=== PATIENT | male | born 1955 | race Caucasian/White ===

== ENCOUNTER 2024-02-02 13:06 | Inpatient (IN) | payer MEDICARE, MEDICAID ==
[~2024-02-02] VITALS: Ht 177.8 cm; Wt 92.6 kg
[2024-02-02] MEDS: CEFTRIAXONE 1GM/50ML 50 ML IV ONE (13:54)
[2024-02-02 14:01] LABS: EOSINOPHILS % 6.3 % (0.0-5.0); HEMATOCRIT. 40.3 % (42.0-52.0); HEMOGLOBIN. 13.4 g/dL (14.0-18.0); LYMPHOCYTES % 29.3 % (20.0-50.0); MEAN CORPUSCULAR HEMOGLOBIN 31.9 pg (28.0-32.0); MEAN CORPUSCULAR HGB CONC 33.2 g/dL (31.0-37.0); MEAN PLATELET VOLUME 8.4 fl (7.4-10.4); MONOCYTES % 12.2 % (2.0-8.0); NEUTROPHILS % 51.2 % (40.0-76.0); PLATELET 185 x1000/uL (130-400); RED CELL DISTRIBUTION WIDTH 14.2 % (11.6-14.6)
[2024-02-02 14:11] LABS: CARBON DIOXIDE 26 mEq/L (21-32); CHLORIDE 93 mEq/L (98-107); POTASSIUM 4.3 mEq/L (3.5-5.1); SODIUM 128 mEq/L (136-145)
[2024-02-02 14:12] LABS: CALCIUM 9.5 mg/dL (8.7-10.4)
[2024-02-02 14:16] LABS: GLUCOSE 204 mg/dL (70-105)
[2024-02-02 14:17] LABS: AMMONIA 33 uMol/L (<32); UREA NITROGEN BLOOD 35 mg/dL (9-23)
[2024-02-02 14:18] LABS: ALANINE AMINOTRANSFERASE 80 IU/L (10-49); ALBUMIN 4.4 g/dL (3.2-4.8); ASPARTATE AMINOTRANSFERASE 51 IU/L (<34)
[2024-02-02 14:19] LABS: BILIRUBIN DIRECT 0.1 mg/dL (<=3.0); BILIRUBIN TOTAL 0.4 mg/dL (0.1-1.0); PROTEIN TOTAL 7.3 g/dL (6.0-8.3)
[2024-02-02 14:22] LABS: CREATININE 11.9 mg/dL (0.6-1.3); TROPONIN I HIGH SENSITIVITY 69 ng/L (3.0-53)
[2024-02-02 14:38] LABS: INR 0.9; PARTIAL THROMBOPLASTIN TIME 24.2 sec (23.4-31.0); PROTHROMBIN TIME 10.4 sec (9.6-11.0)
[2024-02-02] MEDS: METRONIDAZOLE 500 MG PREMIX 100 ML IV ONE (15:31)
[2024-02-02] MEDS: LEVOFLOXACIN 500MG PREMIX 100 ML IV ONE (16:07)
[2024-02-02 17:14] LABS: BODY FLUID RBC 0 /cu mm (0-2000); BODY FLUID WBC 2 /cu mm (0-200)
[2024-02-02] MEDS ORDERED: ONDANSETRON HCL 4MG/2ML INJ IV PRN (17:30)
[2024-02-02] MEDS ORDERED: GUAIFENESIN 200MG/10ML SUGAR FREE UDC PO PRN (17:30)
[2024-02-02] MEDS ORDERED: DEXTROSE 50% WATER 50ML SYRINGE IV PRN (17:30)
[2024-02-02] MEDS ORDERED: IPRATROPIUM/ALBUTEROL 0.5-3(2.5)MG/3ML NEB HHN PRN (17:30)
[2024-02-02] MEDS ORDERED: ACETAMINOPHEN 325MG TABLET PO PRN ×2 (17:30)
[2024-02-02 17:35] VITALS: BP 125/78; PULSE 58; RESP 12; TEMP 36.6696; TEMP 36.696; O2SAT 97
[2024-02-02] MEDS: SODIUM CHLORIDE 0.9% 1,000 ML IV SCH (17:45)
[2024-02-02] MEDS ORDERED: PIPERACILLIN/TAZO 3.375G/50ML 50 ML IV SCH (18:00)
[2024-02-02 18:09] LABS: PHOSPHORUS 4.5 mg/dL (2.5-4.9)
[2024-02-02] MEDS: INSULIN LISPRO 100 UNITS/ML SUBCUT SCH (18:46)
[2024-02-02 20:00] VITALS: BP 154/87; PULSE 56; RESP 12; TEMP 36.6696; O2SAT 96
[2024-02-02 20:17] LABS: FOLIC ACID (FOLATE) SERUM > 20.00 ng/mL (>5.38)
[2024-02-02] MEDS: CEFEPIME 1GM/50ML 50 ML IV SCH (20:25)
[2024-02-02 20:46] LABS: VITAMIN B12 SERUM 1784 pg/mL (211-911)
[2024-02-02] MEDS: VANCOMYCIN 1,750 MG in DEXT 5% WATER 500 ML IV NR (21:23)
[2024-02-02] MEDS: BLOOD SUGAR DIAGNOSTIC STRIP TEST SCH (21:46)
[2024-02-02] MEDS: CARVEDILOL 3.125 MG TABLET PO SCH (22:47)
[2024-02-03] VITALS (11 sets, daily range): BP systolic 120–176; BP diastolic 70–100; PULSE 47–58; RESP 11–21; TEMP 36.44736–37.05852; O2SAT 96–99
[2024-02-03] MEDS: METRONIDAZOLE 500 MG PREMIX 100 ML IV SCH (00:36)
[2024-02-03] MEDS: CLONIDINE 0.1MG TABLET PO PRN (00:42)
[2024-02-03] MEDS: PANTOPRAZOLE 40MG DR TABLET PO SCH (06:06)
[2024-02-03 06:33] LABS: AMMONIA 19 uMol/L (<32)
[2024-02-03 06:36] LABS: T4 FREE 1.2 ng/dL (0.89-1.76)
[2024-02-03 06:37] LABS: THYROID STIMULATING HORMONE 1.94 uIU/mL (0.55-4.78)
[2024-02-03 06:40] LABS: BASOPHILS % 0.9 % (0.0-2.0); EOSINOPHILS % 5.2 % (0.0-5.0); HEMATOCRIT. 35.1 % (42.0-52.0); HEMOGLOBIN. 11.8 g/dL (14.0-18.0); LYMPHOCYTES % 19.8 % (20.0-50.0); MEAN CORPUSCULAR HEMOGLOBIN 31.8 pg (28.0-32.0); MEAN CORPUSCULAR HGB CONC 33.6 g/dL (31.0-37.0); MEAN CORPUSCULAR VOLUME 94.6 fL (80.0-94.0); MEAN PLATELET VOLUME 8.5 fl (7.4-10.4); MONOCYTES % 12.5 % (2.0-8.0); NEUTROPHILS % 61.6 % (40.0-76.0); PLATELET 194 x1000/uL (130-400); RED BLOOD CELL COUNT 3.71 mill/uL (4.7-6.1); RED CELL DISTRIBUTION WIDTH 13.9 % (11.6-14.6); WHITE BLOOD COUNT 6.4 x1000/uL (4.5-11.0)
[2024-02-03] MEDS: ASPIRIN 81MG TABLET PO SCH (09:13)
[2024-02-03] MEDS: ENOXAPARIN 30MG/0.3ML SYR SUBCUT SCH (09:14)
[2024-02-03] MEDS ORDERED: SEVE800T8 ×2 (14:52)
[2024-02-03] MEDS ORDERED: ATOR40TA70 PO (14:52)
[2024-02-03] MEDS ORDERED: NIFE-72 PO (14:52)
[2024-02-03] MEDS ORDERED: NIFEDIPINE PO SCH (15:00)
[2024-02-03 16:33] LABS: CREATINE KINASE MB FRACTION 6.1 ng/mL (0.5-3.6)
[2024-02-03] MEDS: SEVELAMER CARBONATE 800 MG TABLET PO SCH (18:10)
[2024-02-03] MEDS: ATORVASTATIN CALCIUM 40MG TABLET PO SCH (21:52)
[2024-02-04] VITALS (8 sets, daily range): BP systolic 109–123; BP diastolic 67–77; PULSE 56–66; RESP 10–21; TEMP 36.3918–36.9474; O2SAT 97–99
[2024-02-04 00:40] LABS: CREATINE KINASE MB FRACTION 6.3 ng/mL (0.5-3.6)
[2024-02-04 06:34] LABS: HEMOGLOBIN 11.6 g/dL (14.0-18.0); MEAN CORPUSCULAR HEMOGLOBIN 31.6 pg (28.0-32.0); MEAN CORPUSCULAR HGB CONC 33.1 g/dL (31.0-37.0); MEAN CORPUSCULAR VOLUME 95.4 fL (80.0-94.0); PLATELET 197 x1000/uL (130-400); RED BLOOD CELL COUNT 3.67 mill/uL (4.7-6.1); RED CELL DISTRIBUTION WIDTH 14.6 % (11.6-14.6); WHITE BLOOD COUNT 5.7 x1000/uL (4.5-11.0)
[2024-02-04 06:44] LABS: CHLORIDE 96 mEq/L (98-107); SODIUM 130 mEq/L (136-145)
[2024-02-04 06:45] LABS: CALCIUM 8.9 mg/dL (8.7-10.4); CARBON DIOXIDE 24 mEq/L (21-32)
[2024-02-04 06:49] LABS: CREATINE KINASE MB FRACTION 6.1 ng/mL (0.5-3.6)
[2024-02-04 06:50] LABS: GLUCOSE 209 mg/dL (70-105); UREA NITROGEN BLOOD 32 mg/dL (9-23)
[2024-02-04 06:52] LABS: ALANINE AMINOTRANSFERASE 38 IU/L (10-49); ALBUMIN 3.5 g/dL (3.2-4.8); ASPARTATE AMINOTRANSFERASE 20 IU/L (<34); BILIRUBIN DIRECT 0.1 mg/dL (<=3.0); BILIRUBIN TOTAL 0.3 mg/dL (0.1-1.0); CREATINE KINASE 89 IU/L (46-171)
[2024-02-04 07:02] LABS: CREATININE 11.9 mg/dL (0.6-1.3); POTASSIUM 2.6 mEq/L (3.5-5.1)
[2024-02-04 07:03] LABS: TROPONIN I HIGH SENSITIVITY 65 ng/L (3.0-53)
[2024-02-04 07:06] LABS: HEPATITIS B SURFACE ANTIGEN NEGATIVE (Negative)
[2024-02-04 07:27] LABS: HEPATITIS A AB IGM NEGATIVE (Negative); HEPATITIS B CORE AB IGM NEGATIVE (Negative)
[2024-02-04 07:28] LABS: HEPATITIS C AB NON REACTIVE (Neg) (Negative)
[2024-02-04] MEDS: NIFEDIPINE XL 60MG TAB PO SCH (08:25)
[2024-02-04] MEDS ORDERED: POTASSIUM CHLORIDE 40 MEQ in DEXT 5% WATER 230 ML IV ONE (10:00)
[2024-02-04] MEDS: KCL 20MEQ/100ML X 2 FOR TOTAL KCL 40MEQ/200ML IV SCH ×2 (11:08→16:15)
[2024-02-05] VITALS (7 sets, daily range): BP systolic 105–162; BP diastolic 59–96; PULSE 52–70; RESP 12–18; TEMP 36.3918–37.11408; O2SAT 95–100
[2024-02-05 07:02] LABS: BASOPHILS % 1.1 % (0.0-2.0); HEMOGLOBIN. 12.3 g/dL (14.0-18.0); LYMPHOCYTES % 20.2 % (20.0-50.0); MEAN CORPUSCULAR HEMOGLOBIN 31.8 pg (28.0-32.0); MEAN CORPUSCULAR HGB CONC 33.3 g/dL (31.0-37.0); MEAN CORPUSCULAR VOLUME 95.3 fL (80.0-94.0); MEAN PLATELET VOLUME 8.9 fl (7.4-10.4); MONOCYTES % 12.8 % (2.0-8.0); NEUTROPHILS % 61.9 % (40.0-76.0); PLATELET 198 x1000/uL (130-400); RED BLOOD CELL COUNT 3.88 mill/uL (4.7-6.1); RED CELL DISTRIBUTION WIDTH 14.4 % (11.6-14.6); WHITE BLOOD COUNT 6.2 x1000/uL (4.5-11.0)
[2024-02-05 08:01] LABS: POTASSIUM 2.8 mEq/L (3.5-5.1)
[2024-02-05 08:02] LABS: CREATININE 12.1 mg/dL (0.6-1.3)
[2024-02-05] MEDS ORDERED: POTASSIUM CHLORIDE 40 MEQ in DEXT 5% WATER 230 ML IV ONE (08:45)
[2024-02-05] MEDS ORDERED: KCL 20MEQ/100ML X 2 FOR TOTAL KCL 40MEQ/200ML IV SCH (09:00)
[2024-02-05] MEDS: KCL 20MEQ/100ML X 2 FOR TOTAL KCL 40MEQ/200ML IV SCH (10:57)
[2024-02-06] VITALS (11 sets, daily range): BP systolic 111–157; BP diastolic 65–97; PULSE 61–81; RESP 13–17; TEMP 36.3918–36.78072; O2SAT 96–99
[2024-02-06] MEDS: METRONIDAZOLE 500MG TABLET PO SCH (06:46)
[2024-02-06 07:15] LABS: POTASSIUM 3.3 mEq/L (3.5-5.1)
[2024-02-06 07:34] LABS: CREATININE 11.6 mg/dL (0.6-1.3)
[2024-02-06 07:53] LABS: EOSINOPHILS % 4.1 % (0.0-5.0); HEMATOCRIT. 35.8 % (42.0-52.0); HEMOGLOBIN. 11.8 g/dL (14.0-18.0); LYMPHOCYTES % 21.5 % (20.0-50.0); MEAN CORPUSCULAR HEMOGLOBIN 31.8 pg (28.0-32.0); MEAN CORPUSCULAR HGB CONC 32.8 g/dL (31.0-37.0); MEAN PLATELET VOLUME 8.4 fl (7.4-10.4); MONOCYTES % 14.9 % (2.0-8.0); NEUTROPHILS % 58.5 % (40.0-76.0); PLATELET 188 x1000/uL (130-400); RED BLOOD CELL COUNT 3.69 mill/uL (4.7-6.1); RED CELL DISTRIBUTION WIDTH 14.5 % (11.6-14.6); WHITE BLOOD COUNT 6.3 x1000/uL (4.5-11.0)
[2024-02-06] MEDS ORDERED: POTASSIUM CHLORIDE 40 MEQ in DEXT 5% WATER 230 ML IV ONE (13:00)
[2024-02-06] MEDS: KCL 20MEQ/100ML X 2 FOR TOTAL KCL 40MEQ/200ML IV SCH (13:58)
[2024-02-06] MEDS: LACTULOSE 20G/30ML UDC PO NR (15:23)
[2024-02-06 17:43] LABS: AMMONIA < 17 uMol/L (<32)
[2024-02-07] VITALS (8 sets, daily range): BP systolic 115–154; BP diastolic 45–137; PULSE 71–98; RESP 16–22; TEMP 36.114–37.11408; O2SAT 96–100
[2024-02-07 06:37] LABS: BASOPHILS % 0.9 % (0.0-2.0); EOSINOPHILS % 2.6 % (0.0-5.0); HEMATOCRIT. 37.9 % (42.0-52.0); HEMOGLOBIN. 12.7 g/dL (14.0-18.0); LYMPHOCYTES % 17.1 % (20.0-50.0); MEAN CORPUSCULAR HGB CONC 33.6 g/dL (31.0-37.0); MEAN CORPUSCULAR VOLUME 95.1 fL (80.0-94.0); MEAN PLATELET VOLUME 8.2 fl (7.4-10.4); MONOCYTES % 13.6 % (2.0-8.0); NEUTROPHILS % 65.8 % (40.0-76.0); PLATELET 205 x1000/uL (130-400); RED BLOOD CELL COUNT 3.98 mill/uL (4.7-6.1); RED CELL DISTRIBUTION WIDTH 14.4 % (11.6-14.6); WHITE BLOOD COUNT 6.5 x1000/uL (4.5-11.0)
[2024-02-07 06:59] LABS: POTASSIUM 3.2 mEq/L (3.5-5.1)
[2024-02-07 07:00] LABS: CALCIUM 9.2 mg/dL (8.7-10.4)
[2024-02-07 07:33] LABS: CREATININE 12.4 mg/dL (0.6-1.3)
[2024-02-07] MEDS: FAMOTIDINE 20MG TABLET PO SCH (08:03)
[2024-02-07] MEDS ORDERED: SODIUM CHLORIDE 0.9% 1,000 ML IV SCH (12:00)
[2024-02-07 13:05] LABS: INR 1.1; PROTHROMBIN TIME 12.1 sec (9.6-11.0)
[2024-02-07 13:16] LABS: AMMONIA < 17 uMol/L (<32)
[2024-02-07] MEDS: PANTOPRAZOLE SODIUM 40 MG/VIAL IV SCH (13:25)
[2024-02-07] MEDS: DEXT 5%/0.9% NACL 1,000 ML IV SCH (13:26)
[2024-02-07] MEDS: LORAZEPAM 2MG/ML INJ IV PRN (13:44)
[2024-02-07] MEDS: OCTREOTIDE 1,000 MCG in SODIUM CHLORIDE 0.9% 98 ML IV SCH (15:00)
[2024-02-08] VITALS (16 sets, daily range): BP systolic 121–155; BP diastolic 61–90; PULSE 67–78; RESP 12–21; TEMP 36.44736–36.78072; O2SAT 94–100
[2024-02-08] MEDS: METRONIDAZOLE 500 MG PREMIX 100 ML IV SCH (03:09)
[2024-02-08 03:43] LABS: HEMATOCRIT. 35.5 % (42.0-52.0); MEAN CORPUSCULAR HEMOGLOBIN 32.4 pg (28.0-32.0); MEAN CORPUSCULAR HGB CONC 33.7 g/dL (31.0-37.0); MEAN CORPUSCULAR VOLUME 96.1 fL (80.0-94.0); MEAN PLATELET VOLUME 7.9 fl (7.4-10.4); PLATELET 200 x1000/uL (130-400); RED BLOOD CELL COUNT 3.69 mill/uL (4.7-6.1); RED CELL DISTRIBUTION WIDTH 14.5 % (11.6-14.6); WHITE BLOOD COUNT 7.5 x1000/uL (4.5-11.0)
[2024-02-08 03:46] LABS: DIFFERENTIAL COMMENT 1
[2024-02-08 03:51] LABS: CHLORIDE 99 mEq/L (98-107); POTASSIUM 3.4 mEq/L (3.5-5.1); SODIUM 135 mEq/L (136-145)
[2024-02-08 03:52] LABS: CALCIUM 8.8 mg/dL (8.7-10.4); CARBON DIOXIDE 26 mEq/L (21-32)
[2024-02-08 03:53] LABS: INR 1.1; PROTHROMBIN TIME 12.1 sec (9.6-11.0)
[2024-02-08 03:57] LABS: GLUCOSE 144 mg/dL (70-105); UREA NITROGEN BLOOD 33 mg/dL (9-23)
[2024-02-08 03:59] LABS: ALANINE AMINOTRANSFERASE 61 IU/L (10-49); ALBUMIN 3.5 g/dL (3.2-4.8); ASPARTATE AMINOTRANSFERASE 69 IU/L (<34); BILIRUBIN TOTAL 0.4 mg/dL (0.1-1.0); PROTEIN TOTAL 6.1 g/dL (6.0-8.3)
[2024-02-08 04:15] LABS: CREATININE 12.9 mg/dL (0.6-1.3)
[2024-02-08 05:56] LABS: PLATELET ESTIMATE NORMAL
[2024-02-08] MEDS ORDERED: PRED12O LEFTEYE (11:01)
[2024-02-08] MEDS ORDERED: TIMO15DR11 RIGHTEYE (11:01)
[2024-02-08] MEDS ORDERED: ATRO2DRO6 LEFTEYE (11:01)
[2024-02-08] MEDS ORDERED: [UNRECOGNIZED DRUG - CODE] LEFTEYE (11:10)
[2024-02-08] MEDS ORDERED: BRIM15DR8 RIGHTEYE (11:10)
[2024-02-08] MEDS ORDERED: PHENYLEPHRINE HCL 10MG/ML 1ML IV ONE (11:39)
[2024-02-08] MEDS ORDERED: LIDOCAINE HCL 2% 5ML SYRINGE IV ONE (12:50)
[2024-02-08] MEDS: CEFEPIME 1GM/50ML 50 ML IV SCH (18:32)
[2024-02-09] VITALS (10 sets, daily range): BP systolic 100–145; BP diastolic 68–125; PULSE 66–95; RESP 13–20; TEMP 36.50292–36.78072; O2SAT 96–100
[2024-02-09 11:33] LABS: HEMATOCRIT. 32.2 % (42.0-52.0); MEAN CORPUSCULAR HEMOGLOBIN 32.6 pg (28.0-32.0); MEAN CORPUSCULAR HGB CONC 34.1 g/dL (31.0-37.0); MEAN CORPUSCULAR VOLUME 95.5 fL (80.0-94.0); MEAN PLATELET VOLUME 7.5 fl (7.4-10.4); PLATELET 202 x1000/uL (130-400); RED BLOOD CELL COUNT 3.37 mill/uL (4.7-6.1); RED CELL DISTRIBUTION WIDTH 14.8 % (11.6-14.6); WHITE BLOOD COUNT 5.8 x1000/uL (4.5-11.0)
[2024-02-09 11:34] LABS: DIFFERENTIAL COMMENT 1
[2024-02-09 11:47] LABS: CALCIUM 8.8 mg/dL (8.7-10.4)
[2024-02-09 11:59] LABS: CREATININE 12.1 mg/dL (0.6-1.3)
[2024-02-09] MEDS: PANTOPRAZOLE SODIUM 40 MG/VIAL IV SCH (17:34)
[2024-02-09] MEDS: SUCRALFATE 1G TABLET PO SCH (17:35)
[2024-02-09] MEDS: METOCLOPRAMIDE HCL 10MG/2ML VIAL IV SCH (17:54)
[2024-02-10] VITALS (8 sets, daily range): BP systolic 107–125; BP diastolic 53–70; PULSE 63–76; RESP 12–21; TEMP 36.6696–36.89184; O2SAT 96–99
[2024-02-10 02:49] LABS: PLATELET ESTIMATE NORMAL
[2024-02-10] MEDS: METRONIDAZOLE 500MG TABLET PO SCH (10:40)
[2024-02-10] MEDS: POTASSIUM CHLORIDE 20MEQ TABLET SR PO NR (12:37)
[2024-02-11] VITALS (8 sets, daily range): BP systolic 105–155; BP diastolic 64–97; PULSE 65–70; RESP 14–17; TEMP 36.22512–36.89184; O2SAT 92–99
[2024-02-11 07:29] LABS: CALCIUM 8.3 mg/dL (8.7-10.4); POTASSIUM 3.6 mEq/L (3.5-5.1)
[2024-02-11 07:44] LABS: CREATININE 13.5 mg/dL (0.6-1.3)
[2024-02-11] MEDS: POTASSIUM CHLORIDE 20MEQ/PACKET PO SCH (09:08)
[2024-02-11 10:20] LABS: HEMATOCRIT. 32.9 % (42.0-52.0); HEMOGLOBIN. 10.7 g/dL (14.0-18.0); MEAN CORPUSCULAR HGB CONC 32.6 g/dL (31.0-37.0); MEAN PLATELET VOLUME 8.2 fl (7.4-10.4); PLATELET 206 x1000/uL (130-400); RED BLOOD CELL COUNT 3.36 mill/uL (4.7-6.1); RED CELL DISTRIBUTION WIDTH 15.1 % (11.6-14.6); WHITE BLOOD COUNT 7.4 x1000/uL (4.5-11.0)
[2024-02-11 10:27] LABS: DIFFERENTIAL COMMENT 1
[2024-02-11 13:06] LABS: ANISOCYTOSIS 1+; PLATELET ESTIMATE NORMAL
[2024-02-12] VITALS (9 sets, daily range): BP systolic 97–125; BP diastolic 51–82; PULSE 65–77; RESP 13–20; TEMP 36.114–36.78072; O2SAT 96–100
[2024-02-12 06:35] LABS: POTASSIUM 3.8 mEq/L (3.5-5.1)
[2024-02-12 06:37] LABS: CALCIUM 8.5 mg/dL (8.7-10.4)
[2024-02-12 07:51] LABS: HEMATOCRIT. 31.8 % (42.0-52.0); HEMOGLOBIN. 10.4 g/dL (14.0-18.0); MEAN CORPUSCULAR HEMOGLOBIN 31.7 pg (28.0-32.0); MEAN CORPUSCULAR HGB CONC 32.7 g/dL (31.0-37.0); MEAN CORPUSCULAR VOLUME 96.9 fL (80.0-94.0); MEAN PLATELET VOLUME 7.9 fl (7.4-10.4); PLATELET 206 x1000/uL (130-400); RED BLOOD CELL COUNT 3.28 mill/uL (4.7-6.1); RED CELL DISTRIBUTION WIDTH 14.8 % (11.6-14.6); WHITE BLOOD COUNT 5.8 x1000/uL (4.5-11.0)
[2024-02-12 07:55] LABS: DIFFERENTIAL COMMENT 1
[2024-02-12 08:16] LABS: CREATININE 13.1 mg/dL (0.6-1.3)
[2024-02-12 21:56] LABS: ANISOCYTOSIS 1+; OVALOCYTES 1+; PLATELET ESTIMATE NORMAL
[2024-02-13] VITALS (7 sets, daily range): BP systolic 107–130; BP diastolic 57–79; PULSE 71–80; RESP 16–22; TEMP 36.44736–37.00296; O2SAT 94–97
== END 2024-02-13 16:45 | disposition home health service (06) | DRG 871 ==
LOC: ER 13:06 → EDBEDREQ 15:53 → 3WST 17:51
PROVIDERS: ADMIT Internal Medicine; ATTEND Internal Medicine
PROC: 3E1M39Z Irrigation of Peritoneal Cavity using Dialysate, Percutaneous Approach (ICD-10-PCS; 2024-02-03)
PROC: 3E1M39Z Irrigation of Peritoneal Cavity using Dialysate, Percutaneous Approach (ICD-10-PCS; 2024-02-04)
PROC: 3E1M39Z Irrigation of Peritoneal Cavity using Dialysate, Percutaneous Approach (ICD-10-PCS; 2024-02-05)
PROC: 5A1D70Z Performance of Urinary Filtration, Intermittent, Less than 6 Hours Per Day (ICD-10-PCS; 2024-02-06)
PROC: 0DB78ZX Excision of Stomach, Pylorus, Via Natural or Artificial Opening Endoscopic, Diagnostic (ICD-10-PCS; principal; 2024-02-08)
PROC: 0DH63UZ Insertion of Feeding Device into Stomach, Percutaneous Approach (ICD-10-PCS; 2024-02-08)
PROC: 3E1M39Z Irrigation of Peritoneal Cavity using Dialysate, Percutaneous Approach (ICD-10-PCS; 2024-02-08)
PROC: 3E1M39Z Irrigation of Peritoneal Cavity using Dialysate, Percutaneous Approach (ICD-10-PCS; 2024-02-09)
PROC: 5A1D70Z Performance of Urinary Filtration, Intermittent, Less than 6 Hours Per Day (ICD-10-PCS; 2024-02-10)
PROC: 3E1M39Z Irrigation of Peritoneal Cavity using Dialysate, Percutaneous Approach (ICD-10-PCS; 2024-02-11)
PROC: 3E1M39Z Irrigation of Peritoneal Cavity using Dialysate, Percutaneous Approach (ICD-10-PCS; 2024-02-12)
DX: A41.9 Sepsis, unspecified organism (principal); G93.41 Metabolic encephalopathy; N18.6 End stage renal disease; I21.A1 Myocardial infarction type 2; K20.91 Esophagitis, unspecified with bleeding; K29.71 Gastritis, unspecified, with bleeding; K29.81 Duodenitis with bleeding; K57.32 Diverticulitis of large intestine without perforation or abscess without bleeding; E87.1 Hypo-osmolality and hyponatremia; I12.0 Hypertensive chronic kidney disease with stage 5 chronic kidney disease or end stage renal disease; I45.2 Bifascicular block; R18.8 Other ascites; K74.60 Unspecified cirrhosis of liver; I25.41 Coronary artery aneurysm; E11.22 Type 2 diabetes mellitus with diabetic chronic kidney disease; H40.9 Unspecified glaucoma; D53.9 Nutritional anemia, unspecified; J84.10 Pulmonary fibrosis, unspecified; D63.8 Anemia in other chronic diseases classified elsewhere; E87.6 Hypokalemia; H54.8 Legal blindness, as defined in USA; E78.00 Pure hypercholesterolemia, unspecified; Z79.4 Long term (current) use of insulin; Z99.2 Dependence on renal dialysis; Z79.82 Long term (current) use of aspirin; Z86.16 Personal history of COVID-19
CPT/HCPCS: 36415; 71045; 74021; 74176; 76700; 80048; 80053; 80061; 80076; 80202; 82140; 82550; 82553; 82607; 82746; 82962; 83036; 83605; 83735; 83880; 84100; 84145; 84439; 84443; 84484; 85018; 85025; 85027; 85379; 86705; 86709; 86850; 86900; 87340; 88305; 88312; 88313; 90935; 90945; 93005; 93306; 93970; 99285; J0692; J0696; J1650; J1815; J1956; J2060; J2354; J2470; J2765; J3370; J3480; J3490; J7042; J7050; J7060